=== PATIENT | female | born 1970 | race Two or more races ===

== ENCOUNTER 2017-12-28 15:02 | Emergency (ER) | payer MEDICAID, OTHER ==
[~2017-12-28] VITALS: Ht 157.5 cm; Wt 61.2 kg
[2017-12-28 15:19] VITALS: BP 113/81
[2017-12-28 16:44] LABS: Basophils # (auto) 0.1 uL; Basophils % (auto) 1.4 % (0.0-2.0); Eosinophils # (auto) 0.2 uL; Eosinophils % (auto) 1.9 % (0.0-7.0); Hematocrit 44.1 % (36.0-46.0); Hemoglobin 14.9 g/dL (12.2-16.2); Lymphocytes # (auto) 3.2 uL; Lymphocytes % (auto) 33.9 % (10.0-50.0); Mean Corpuscular Hemoglobin 28.5 pg (28.0-32.0); Mean Corpuscular Hgb Conc. 33.7 g/dL (32.0-36.0); Mean Corpuscular Volume 84.7 fL (80.0-100.0); Monocytes # (auto) 0.7 uL; Monocytes % (auto) 7.5 % (0.0-12.0); Neutrophils # (auto) 5.2 uL; Neutrophils % (auto) 55.3 % (37.0-80.0); Platelet Count (auto) 317 10^3/uL (140-450); Red Blood Cells 5.21 10^6/uL (4.0-5.20); Red Cell Distribution Width 13.7 % (11.8-14.3); White Blood Cell 9.4 10^3/uL (4.4-10.8)
[2017-12-28 17:06] LABS: Alanine Aminotransferase 25 U/L (13-56); Albumin 3.9 g/dL (3.4-5.0); Alkaline Phosphatase 127 U/L (45-117); Anion Gap 8 (5-15); Aspartate Aminotransferase 14 U/L (15-37); BUN/Creatinine Ratio 12.1; Bilirubin, Total 0.4 mg/dL (0.2-1.0); Blood Urea Nitrogen 12 mg/dL (7-18); Calcium 9.5 mg/dL (8.5-10.1); Carbon Dioxide 29 mmol/L (21-32); Chloride 101 mmol/L (98-107); GFR African American 77 mL/min; GFR Non-African American 64 mL/min; Glucose 89 mg/dL (74-106); Potassium 3.9 mmol/L (3.5-5.1); Sodium 138 mmol/L (136-145); Total Protein 7.5 g/dL (6.4-8.2)
== END 2017-12-28 18:30 | disposition left against medical advice (07) ==
LOC: ER 15:02
DX: R07.9 Chest pain, unspecified (principal); Z53.21 Procedure and treatment not carried out due to patient leaving prior to being seen by health care provider
CPT/HCPCS: 36415; 71046; 80053; 84484; 85025; 93005

== ENCOUNTER 2018-06-02 20:32 | Emergency (ER) | payer MEDICAID ==
[~2018-06-02] VITALS: Ht 157.5 cm; Wt 59.9 kg
[2018-06-02 21:15] VITALS: BP 125/85
== END 2018-06-02 21:39 | disposition left against medical advice (07) ==
LOC: ER 20:32
DX: R10.13 Epigastric pain (principal); Z53.21 Procedure and treatment not carried out due to patient leaving prior to being seen by health care provider
CPT/HCPCS: 93005

== ENCOUNTER 2018-07-12 05:52 | Emergency (ER) | payer MEDICAID ==
[~2018-07-12] VITALS: Ht 157.5 cm; Wt 56.2 kg
[2018-07-12 06:04] VITALS: BP 114/73
== END 2018-07-12 09:10 | disposition left against medical advice (07) ==
LOC: ER 05:52
DX: R07.9 Chest pain, unspecified (principal); Z88.5 Allergy status to narcotic agent; Z88.8 Allergy status to other drugs, medicaments and biological substances; Z53.21 Procedure and treatment not carried out due to patient leaving prior to being seen by health care provider
CPT/HCPCS: 71045

== ENCOUNTER 2019-09-05 23:59 | Emergency (ER) | payer MEDICAID ==
[~2019-09-05] VITALS: Ht 157.5 cm; Wt 54.4 kg
[2019-09-06 00:36] VITALS: BP 133/96
== END 2019-09-06 | disposition left against medical advice (07) ==
LOC: ER 09-06 00:02
DX: S69.92XA Unspecified injury of left wrist, hand and finger(s), initial encounter (principal); Z53.21 Procedure and treatment not carried out due to patient leaving prior to being seen by health care provider; W23.0XXA Caught, crushed, jammed, or pinched between moving objects, initial encounter; Y93.89 Activity, other specified; Y99.8 Other external cause status; Y92.89 Other specified places as the place of occurrence of the external cause
CPT/HCPCS: 73130

== ENCOUNTER 2022-10-13 01:47 | Emergency (ER) | payer MEDICAID ==
[~2022-10-13] VITALS: Ht 157.5 cm; Wt 62.6 kg
[2022-10-13 02:08] VITALS: BP 144/84
[2022-10-13 02:33] LABS: Basophils # (auto) 0.2 10 ^3/uL (0-0.2); Basophils % (auto) 1.3 % (0.0-2.0); Eosinophils # (auto) 0.6 10 ^3/uL (0-0.8); Hematocrit 44.5 % (36.0-46.0); Hemoglobin 14.6 g/dL (12.2-16.2); Lymphocytes # (auto) 4.4 10 ^3/uL (0.4-5.4); Mean Corpuscular Hgb Conc. 32.8 g/dL (32.0-36.0); Mean Corpuscular Volume 82.4 fL (80.0-100.0); Monocytes # (auto) 0.8 10 ^3/uL (0-1.3); Monocytes % (auto) 6.8 % (0.0-12.0); Neutrophils % (auto) 49.9 % (37.0-80.0); Nucleated Red Blood Cells % 0.1 %; Red Blood Cells 5.39 10^6/uL (4.0-5.20)
[2022-10-13 02:46] LABS: Albumin 3.9 g/dL (3.4-5.0); Calcium 9.2 mg/dL (8.5-10.1); Potassium 4.1 mmol/L (3.5-5.1)
[2022-10-13 02:49] LABS: Bilirubin, Total 0.2 mg/dL (0.2-1.0); Total Protein 7.8 g/dL (6.4-8.2)
== END 2022-10-13 09:26 | disposition left against medical advice (07) ==
LOC: ER 01:47
DX: R07.89 Other chest pain (principal); Z53.21 Procedure and treatment not carried out due to patient leaving prior to being seen by health care provider
CPT/HCPCS: 36415; 80053; 84484; 85025; 93005